=== PATIENT | female | born 1995 | race African-American/Black ===

== ENCOUNTER 2018-12-08 02:16 | Emergency (ER) | payer BC, OTHER ==
[~2018-12-08] VITALS: Ht 165.1 cm; Wt 63.5 kg
--- NOTE | 2018-12-08 02:46 | ED GU-Female ---
General Chief Complaint: - Urinary Stated Complaint: POSS UTI,SOB Source: patient, other (boyfriend) Exam Limitations: no limitations History of Present Illness Date Seen by Provider: Dec 08, 2018 Time Seen by Provider: 02:28 Initial Comments With burning urination. She denies any new discharge fevers chills nausea vomiting or belly pain. She said she been using some [id number] medications without significant improvement. She woke up this morning feeling slightly short of breath and had a hard time getting back to bed so they decided to come in to the ER. She does not have a history of asthma and COPD. She does not smoke cigarettes but does occasionally smoke marijuana. She's does endorse a history of anxiety but does not take anything for it. She does not take any routine medicines nor have any significant medical history or surgeries. She is not on control. Her last menstrual period was November 11. She has an occasional nonproductive cough. No fevers chills ears feeling under water, or facial pain but she does occasionally have a sore throat. Allergies and Home Medications Allergies Coded Allergies: No Known Drug Allergies (Unverified , 12/08/18) Patient Home Medication List Home Medication List Reviewed: Yes Review of Systems Review of Systems Constitutional: No chills, No fever, No malaise EENTM: No ear discharge, No hearing loss Respiratory: No cough, No short of breath Cardiovascular: No chest pain, No edema Gastrointestinal: No abdominal pain, No constipation, No diarrhea Genitourinary: denies discharge; dysuria; denies frequency, denies flank pain, denies hematuria : No LMP: Nov 11, 2018 Musculoskeletal: No back pain, No joint pain Past Ylyuqos-Aikfgi-Zdqphv Hx Patient Social History Alcohol Use: Denies Use Recreational Drug Use: Yes Drug of Choice: MJ Smoking Status: Never a Smoker Recent Foreign Travel: No Contact w/Someone Who Travel: No Physical Exam Vital Signs Vital Signs - First Documented 12/08/18 02:30 Temp 97.7 Pulse 79 Resp 18 B/P (MAP) 124/48 (73) Capillary Refill : Height, Weight, BMI Height: '" Weight: lbs. oz. kg; BMI Method: General Appearance: WD/WN, no apparent distress HEENT: PERRL/EOMI, normal ENT inspection, TMs normal, pharyngeal erythema; No tonsillar exudate Neck: full range of motion, normal inspection Cardiovascular: normal peripheral pulses, regular rate, rhythm Respiratory: lungs clear, normal breath sounds, no respiratory distress, no accessory muscle use Gastrointestinal: normal bowel sounds, non tender, soft, no organomegaly Neurologic/Psychiatric: alert, normal mood/affect, oriented x 3 Skin: normal color, warm/dry Progress/Results/Core Measures Suspected Sepsis SIRS Temperature: Pulse: Respiratory Rate: Blood Pressure / Mean: Results/Orders Lab Results Laboratory Tests Test 12/08/18 02:37 12/08/18 02:44 Range/Units Group A Streptococcus Screen NEGATIVE NEGATIVE Urine Color YELLOW Urine Clarity CLEAR Urine pH 5 5-9 Urine Specific Mcneal 1.015 L 1.016-1.022 Urine Protein NEGATIVE NEGATIVE Urine Glucose (UA) NEGATIVE NEGATIVE Urine Ketones NEGATIVE NEGATIVE Urine Nitrite NEGATIVE NEGATIVE Urine Bilirubin NEGATIVE NEGATIVE Urine Urobilinogen NORMAL NORMAL MG/DL Urine Leukocyte Esterase 2+ H NEGATIVE Urine RBC (Auto) 1+ H NEGATIVE Urine RBC RARE /HPF Urine WBC 10-25 H /HPF Urine Squamous Epithelial Cells 5-10 /HPF Urine Crystals NONE /LPF Urine Bacteria TRACE /HPF Urine Casts NONE /LPF Urine Mucus NEGATIVE /LPF Urine Culture Indicated YES My Orders Orders - DORYS DALEY Ua Culture If Indicated (12/08/18 02:20) Urine Bedside (12/08/18 02:20) Rapid Strep A Screen (12/08/18 02:40) Urine Culture (12/08/18 02:44) Vital Signs/I&O 12/08/18 02:30 Temp 97.7 Pulse 79 Resp 18 B/P (MAP) 124/48 (73) Capillary Refill : Progress Note : Time: 02:44 Progress Note Urinalysis, bedside . Patient has normal aseptic vital signs with the clinical evidence of respiratory distress. Breath sounds are clear. We'll check a rapid strep she does have erythematous tonsils but no exudate. Anxiety? Departure Impression Primary Impression: Urinary tract infection Qualified Codes: N30.00 - Acute cystitis without hematuria Disposition: HOME, SELF-CARE Condition: Stable Departure-Patient Inst. Decision time for Depature: 03:09 Referrals: NO,LOCAL PHYSICIAN (PCP/Family) Primary Care Physician Patient Instructions: Urinary Tract Infection, Adult (DC) Add. Discharge Instructions: Drink plenty of fluids and brain picker the antibiotics and take them one capsule twice a day for the next week. If you're still feeling short of breath then follow up with primary care for reevaluation All discharge instructions reviewed with patient and/or family. Voiced understanding. Scripts Cephalexin (Cephalexin) 500 Mg Tablet 500 MG PO BID for 7 Days, #14 TAB 0 Refills Prov: DORYS DALEY 12/08/18 DORYS DALEY Dec 08, 2018 02:46
[2018-12-08 02:52] LABS: BILIRUBIN,URINE NEGATIVE (NEGATIVE); CLARITY,URINE CLEAR; COLOR,URINE YELLOW; GLUCOSE, URINE (UA) NEGATIVE (NEGATIVE); KETONES,URINE NEGATIVE (NEGATIVE); LEUKOCYTE ESTERASE ,URINE 2+ (NEGATIVE); NITRITE,URINE NEGATIVE (NEGATIVE); PH,URINE 5 (5-9); PROTEIN,URINE NEGATIVE (NEGATIVE); UROBILINOGEN,URINE NORMAL (NORMAL)
[2018-12-08 03:06] LABS: BACTERIA,URINE TRACE /HPF; RBC,URINE RARE /HPF
[2018-12-08] MEDS ORDERED: CEPH500T PO (03:10)
[2018-12-08 03:20] VITALS: BP 125/50
== END 2018-12-08 03:20 | disposition home or self-care (01) ==
LOC: ER 02:21
DX: N39.0 Urinary tract infection, site not specified (principal); F41.9 Anxiety disorder, unspecified; F12.10 Cannabis abuse, uncomplicated
CPT/HCPCS: 81000; 84703; 87088; 87430; 99284